=== PATIENT | male | born 1985 ===

== ENCOUNTER 2022-08-09 21:15 | Outpatient (REF) | payer MEDICAID, SELFPAY ==
--- OUTSIDE RECORDS SUMMARY | 2022-08-09 21:20 | XMS_ITS | Continuity of Care Document ---
Author Name Unknown Organization [facility] Address [address] [place] [address] Care Team Providers Care Science Teacher Name Role Phone Sobeida Nagel Primary Care Physician Encounter [email or web address] Date(s): 08/03/22 - 08/03/[address] [address] Discharge Disposition: Home or Self Care Attending Physician: Juhi Mena APRN Admitting Physician: Juhi Mena APRN Referring Physician: Juhi Mena APRN Allergies, Adverse Reactions, Alerts No Known Medication Allergies Assessment and Plan Diagnostic Tests Pending * Lyme Antibody [facility] 08/03/22 Future Scheduled Tests Laboratory* T3, Free [facility] 02/01/22 * TSH w/ Rflx to Free [facility] 02/01/22 Immunizations Given and Recorded Vaccine Date Status Refusal Reason measles/mumps/rubella virus vaccine 04/25/98 Recor ded Td(adult) unspecified formulation 04/25/98 Recorde d Medications Suboxone per patient taking 8 mg daily, 0 Refill(s) Start Date: 11/21/21 Status: Ordered Problem List Condition Confirmation Course Effective Dates Status H ealth Status Informant Anxiety Confirmed Active Attention deficit hyperactivity disorder Confirmed Active Chest pain Confirmed Active Depressive disorder Confirmed Active Dermatophytosis Confirmed Active Epididymitis Confirmed Active Fatigue Confirmed Active Inflammatory dermatosis Confirmed Active Migraine Confirmed Active Nicotine dependence Confirmed Active Panic disorder Confirmed Active Periapical abscess without sinus tract Confirmed Active Phlebitis and thrombophlebitis Confirmed Active Procedures Procedure Date Related Diagnosis Body Site Status Circumcision Completed Social History Social History Type Response Tobacco Current everyday tob acco user Tobacco Use:. smokes 10 cigarettes and 2 cigars daily then smolkes marijuana per day. Sex Male Patient Care team information Care Team Personnel Name: Sobeida Nagel Position: No Access Member Role: Primary Care Physician Address: Address: [address] [address]- [place]
[2022-08-09 21:48] LABS: TSH (W/Ref FT4) 0.66 uIU/mL (0.36-3.74)
== END 2022-08-09 21:16 | disposition home or self-care (01) ==
LOC: NCHCN 21:15
PROVIDERS: PCP Internal Medicine; Visit Provider Family Medicine
DX: R53.83 Other fatigue (principal)
CPT/HCPCS: 84443

== ENCOUNTER 2023-06-18 16:04 | Outpatient (REF) | payer MEDICAID, SELFPAY ==
--- OUTSIDE RECORDS SUMMARY | 2023-06-18 16:22 | XMS_ITS | Continuity of Care Document ---
Author Name Unknown Organization [facility] Address [address] [place] [address] Encounter [facility] Date(s): 02/14/23 - 02/14/23 [facility] [address] [place] [address] [place] Encounter Diagnosis Headache(Discharge Diagnosis) - 02/14/23 Discharge Disposition: Home or Self Care Attending Physician: Joshua Balderrama MD Admitting Physician: Joshua Balderrama MD Allergies, Adverse Reactions, Alerts No Known Medication Allergies Assessment and Plan Extracted from: Title:Clinical Document Author:Dawna Alonso te:02/14/23 Diagnosis: 1. Headache Comment: Diagnosis: Headache Comment: Functional Status 02/14/23 Family Member Travel History No recent t ravel Recent Travel History No recent travel Other exposure to Infectious Disease Non e Immunizations Given and Recorded Vaccine Date Status [...] Related Diagnosis Body Site Status Circumcision Completed Results Laboratory List Name Date CBC w/ Diff 02/14/23 Comprehensive Metabolic Panel (CMP) 02/14 SARS-CoV-2 (COVID-19) RNA (ID Now) Automated Diff 02/14/23 Most recent to oldest [Reference Range]: 1 WBC [5.0-10.0 x10^3/mcL] 6.8 x10^3/mcL (02/14/23 12:12 PM) RBC [4.6-6.0 x10^6/mcL] 5.3 x10^6/mcL (02/14/23 12:12 PM) Neutro Auto [40.0-75.0 %] 53.3 % (02/14/23 12:12 PM) Lymph Auto [20.0-50.0 %] 38.0 % (02/14/23 12:12 PM) Coos Auto [2.0-15.0 %] 6.9 % (02/14/23 12:12 PM) Basophil Auto [0.0-1.0 %] 0.6 % (02/14/23 12:12 PM) BUN [7-18 mg/dL] 10 mg/dL (02/14/23 12:12 PM) Glucose Level [74-106 mg/dL] 94 mg/dL (02/14/23 12:12 PM) Potassium Level [3.5-5.1 mmol/L] 3.8 mmo l/L (02/14/23 12:12 PM) MCV [80.0-96.0 fL] 92.1 fL (02/14/23 12:12 PM) AST [15-37 unit/L] 24 unit/L (02/14/23 12:12 PM) ALT [16-63 unit/L] 36 unit/L (02/14/23 12:12 PM) MCHC [31.0-35.0 g/dL] 34.1 g/dL (02/14/23 12:12 PM) Sodium Level [136-145 mmol/L] 138 mmol/L (02/14/23 12:12 PM) Hct [41.0-51.0 %] 49.0 % (02/14/23 12:12 PM) Calcium Level [8.5-10.1 mg/dL] 9.6 mg/dL (02/14/23 12:12 PM) Albumin Level [3.4-5.0 g/dL] 4.0 g/dL (02/14/23 12:12 PM) Protein Total [6.4-8.2 g/dL] 7.9 g/dL (02/14/23 12:12 PM) MCH [26.0-32.0 pg] 31.4 pg (02/14/23 12:12 PM) Neutro Absolute 3.7 x10^3/mcL *NA* (02/14/23 12:12 PM) Bilirubin Total [0.2-1.0 mg/dL] 0.8 mg/d L (02/14/23 12:12 PM) Hgb [14.0-18.0 g/dL] 16.7 g/dL (02/14/23 12:12 PM) Alk Phos [46-146 unit/L] 101 unit/L (02/14/23 12:12 PM) Platelets [130-450 x10^3/mcL] 225 x10^3/ mcL (02/14/23 12:12 PM) CO2 [21-32 mmol/L] 25 mmol/L (02/14/23 12:12 PM) eGFR Non-AA [>=60] 111 (02/14/23 12:12 PM) eGFR AA [>=60] 111 (02/14/23 12:12 PM) Chloride Level [98-107 mmol/L] 102 mmol/ L (02/14/23 12:12 PM) RDW-CV [11.5-14.5 %] 12.1 % (02/14/23 12:12 PM) Imm Gran Auto [0.0-0.9 %] 0.3 % (02/14/23 12:12 PM) Slide Review Not Indicated (02/14/23 12:12 PM) Creatinine Level [0.70-1.30 mg/dL] 0.90 mg/dL (02/14/23 12:12 PM) SARS-CoV-2 (COVID-19) RNA (ID Now) [Not Detected] Not Detected (02/14/23 12:12 PM) Eos, Auto [1.0-6.0 %] 0.9 % *LOW* (02/14/23 12:12 PM) Vital Signs Most recent to oldest [Reference Range]: 1 Temperature Temporal Artery [36-38 Deg C ] 36.3 Deg C (02/14/23 11:57 AM) Peripheral Pulse Rate [60-100 bpm] 67 bp m (02/14/23 11:57 AM) Respiratory Rate [12-24 br/min] 18 br/mi n (02/14/23 11:57 AM) Blood Pressure [90-140/60-90 mmHg] 152/8 5mmHg *HI* (02/14/23 11:57 AM) Weight Dosing 73.00 kg (02/14/23 12:04 PM) Weight Estimated 73.00 kg (02/14/23 11:57 AM) Height/Length Dosing 172.000 cm (02/14/23 12:04 PM) Height/Length Estimated 172.000 cm (02/14/23 11:57 AM) Social History Social History Type Response Tobacco Current everyday tob acco user Tobacco Use:. pt states he still smokes per day. 13 year(s). Sex Male Hospital Discharge Instructions Patient Education 02/14/2023 12:19:58 Migraine Headache Migraine Headache A migraine headache is an intense, throbbing pain on one side or both sides of the head. Migraine headaches may also cause other symptoms, such as nausea, vomiting, and sensitivity to light and noise. A migraine headache can last from 4 hours to 3 days. Talk with your doctor about what things may bring on (trigger) your migraine headaches. What are the causes? The exact cause of this condition is not known. However, a migraine may be caused when nerves in the brain become irritated and release chemicals that cause inflammation of blood vessels. This inflammation causes pain. This condition may be triggered or caused by: ??? Drinking alcohol. ??? Smoking. ??? Taking medicines, such as: ??? Medicine used to treat chest pain (nitroglycerin). ??? control pills. ??? Estrogen. ??? Certain blood pressure medicines. ??? Eating or drinking products that contain nitrates, glutamate, aspartame, or tyramine. Aged cheeses, chocolate, or caffeine may also be triggers. ??? Doing physical activity. Other things that may trigger a migraine headache include: ??? Menstruation. ??? . ??? Hunger. ??? Stress. ??? Lack of sleep or too much sleep. ??? Weather changes. ??? Fatigue. What increases the risk? The following factors may make you more likely to experience migraine headaches: ??? Being a certain age. This condition is more common in people who are 25???55 years old. ??? Being female. ??? Having a family history of migraine headaches. ??? Being . ??? Having a mental health condition, such as depression or anxiety. ??? Being obese. What are the signs or symptoms? The main symptom of this condition is pulsating or throbbing pain. This pain may: ??? Happen in any area of the head, such as on one side or both sides. ??? Interfere with daily activities. ??? Get worse with physical activity. ??? Get worse with exposure to bright lights or loud noises. Other symptoms may include: ??? Nausea. ??? Vomiting. ??? Dizziness. ??? General sensitivity to bright lights, loud noises, or smells. Before you get a migraine headache, you may get warning signs (an aura). An aura may include: ??? Seeing flashing lights or having blind spots. ??? Seeing bright spots, halos, or zigzag lines. ??? Having tunnel vision or blurred vision. ??? Having numbness or a tingling feeling. ??? Having trouble talking. ??? Having muscle weakness. Some people have symptoms after a migraine headache (postdromal phase), such as: ??? Feeling tired. ??? Difficulty concentrating. How is this diagnosed? A migraine headache can be diagnosed based on: ??? Your symptoms. ??? A physical exam. ??? Tests, such as: ??? CT scan or an MRI of the head. These imaging tests can help rule out other causes of headaches. ??? Taking fluid from the spine (lumbar puncture) and analyzing it (cerebrospinal fluid analysis, or CSF analysis). How is this treated? This condition may be treated with medicines that: ??? Relieve pain. ??? Relieve nausea. ??? Prevent migraine headaches. Treatment for this condition may also include: ??? Acupuncture. ??? Lifestyle changes like avoiding foods that trigger migraine headaches. ??? Biofeedback. ??? Cognitive behavioral therapy. Follow these instructions at home: Medicines ??? Take viui-pyf-fzxrgqa and prescription medicines only as told by your health care provider. ??? Ask your health care provider if the medicine prescribed to you: ??? Requires you to avoid driving or using heavy machinery. ??? Can cause constipation. You may need to take these actions to prevent or treat constipation: ??? Drink enough fluid to keep your urine pale yellow. ??? Take orva-uvk-lvaeglm or prescription medicines. ??? Eat foods that are high in fiber, such as beans, whole grains, and fresh fruits and vegetables. ??? Limit foods that are high in fat and processed sugars, such as fried or sweet foods. Lifestyle ??? Do not drink alcohol. ??? Do not use any products that contain nicotine or tobacco, such as cigarettes, e-cigarettes, andchewing tobacco. If you need help quitting, ask your health care provider. ??? Get at least 8 hours of sleep every night. ??? Find ways to manage stress, such as meditation, deep breathing, or yoga. General instructions ??? Keep a journal to find out what may trigger your migraine headaches. For example, write down: ??? What you eat and drink. ??? How much sleep you get. ??? Any change to your diet or medicines. ??? If you have a migraine headache: ??? Avoid things that make your symptoms worse, such as bright lights. ??? It may help to lie down in a dark, quiet room. ??? Do not drive or use heavy machinery. ??? Ask your health care provider what activities are safe for you while you are experiencing symptoms. ??? Keep all follow-up visits as told by your health care provider. This is important. Contact a health care provider if: ??? You develop symptoms that are different or more severe than your usual migraine headache symptoms. ??? You have more than 15 headache days in one month. Get help right away if: ??? Your migraine headache becomes severe. ??? Your migraine headache lasts longer than 72 hours. ??? You have a fever. ??? You have a stiff neck. ??? You have vision loss. ??? Your muscles feel weak or like you cannot control them. ??? You start to lose your balance often. ??? You have trouble walking. ??? You faint. ??? You have a seizure. Summary ??? A migraine headache is an intense, throbbing pain on one side or both sides of the head. Migraines may also cause other symptoms, such as nausea, vomiting, and sensitivity to light and noise. ??? This condition may be treated with medicines and lifestyle changes. You may also need to avoid certain things that trigger a migraine headache. ??? Keep a journal to find out what may trigger your migraine headaches. ??? Contact your health care provider if you have more than 15 headache days in a month or you develop symptoms that are different or more severe than your usual migraine headache symptoms. This information is not intended to replace advice given to you by your health care provider. Make sure you discuss any questions you have with your health care provider. Document Revised: 08/28/2019 Document Reviewed: 06/18/2019 [employer] Patient Education ?? 2022 [employer]. Follow Up Care 02/14/2023 11:57:19 With:Primary Care Physician Address: When:1 to 2 weeks only if needed Physician Emergency department Note * Jackie Butterfield MD: PERFORM Event Display: ED Note Physician Authored Date: [id number] RADHIKA LAMAS :1985 Age:37 years Sex:Male Visit Date:02/14/2023 Primary Care Physician: Sobeida Nagel SET UP INSPECTOR-C Basic Information Time Seen: Jackie Butterfield MD / 02/14/2023 12:53 Chief Complaint My head is pounding, I thought i was having a stroke, like my head was going to pop. PT also c/o some sinus pressure. Pt states 11 pm last night FAUSTIN started. No medications [employer]. No vision changes. 4mg zofran 1120 by EMs History Of Present Illness: 37-year-old??gentleman??with chart listed history of anxiety, ADHD, chest pain, depression, fatigue, migraine headaches, nicotine dependence,??panic disorder,??who tells me he called EMS because he had a FAUSTIN and did not have any Tylenol at home. His headache has now resolved. FAUSTIN was in the frontal area and associated with nasal stuffiness and facial pain which had started last night.?? No nausea, vomiting, constipation or diarrhea.?? No visual changes.?? No fever or neck pain??or neck stiffness. Physical Exam Vitals & Measurements T:??36.3?C ??(Temporal Artery)?? HR:??67??(Peripheral)?? RR:??18?? BP:??152/85?? SpO2:??95%?? HT:??172.000??cm?? WT:??73.00??kg??(Estimated)?? Pain Score:??4?? Pain Score:??4?? O2 Therapy:??Room air?? General: A&Ox3, Calm, no apparent distress, well developed, pleasant and cooperative ?? HEENT: Head ATNC. Eyes: LATASHA. Extraocular Mobility: intact and symmetrical. Conjunctiva: non-injected, anicteric, no discharge. Oral Cavity: moist. Neck: no masses, no crepitus. Lymph Nodes: no cervical lymphadenopathy? Respiratory: CTA bilaterally, no wheezing, no rales/crackles? CV: RRR, normal S1, normal S2, no murmurs, rubs or gallops ?? Abdomen : soft, non-tender, non-distended, no rebound or guarding, no hepatosplenomegaly ?? Extremities: no le swelling, warm and well-perfused, no cyanosis, capillary refill <2 seconds? Skin: no rash, no lesions, no bruising? Neuro: normal tone, normal strength in all 4 extremities, sensation intact?? Medical Decision Makin-year-old??gentleman??with chart listed history of anxiety, ADHD, chest pain, depression, fatigue, migraine headaches, nicotine dependence,??panic disorder,??who presented to the ED via EMS for FAUSTIN.Pt given Tylenol and Ibuprofen at triage and by the time I saw him his symptoms had all resolved and he requested d/c to go to work. Exam unremarkable Labs sent by nursing were reassuring Pt d/edelmira home Discharge instructions and return precautions discussed, all questions answered. Procedure No Qualifying Data Assessment/Plan 1.??Headache??R51.9 Ordered: Discharge Patient, 02/14/23 13:20:00 EDT, Constant Indicator ?? Patient Education Migraine Headache Follow Up With When Contact Information Primary Care Physician Within 1 to 2 weeks, only if needed Additional Instructions: Medication Reconciliation Unchanged buprenorphine-naloxone (Suboxone)per patient taking 8 mg daily. Problem List/Past Medical History Ongoing Anxiety Attention deficit hyperactivity disorder Chest pain Depressive disorder Dermatophytosis Epididymitis Fatigue Inflammatory dermatosis Migraine Nicotine dependence Panic disorder Periapical abscess without sinus tract Phlebitis and thrombophlebitis Historical No qualifying data Procedure/Surgical History ???Circumcision Medication Administration Given ibuprofen, 800 mg, Oral Tylenol, 1000 mg, Oral Allergies No Known Medication Allergies Social History Alcohol Current, 1-2 times per week Electronic Cigarette/Vaping Electronic Cigarette Use: Never. Substance Use Current, Marijuana Tobacco Current everyday tobacco user Tobacco Use:. pt states he still smokes per day. 15 year(s). Lab Results CBC and Differential?? LATEST RESULTS?? HISTORICAL RESULTS?? WBC?? 02/14/23 12:12?? 6.8?? 12/12/21?? 6.8?? RBC?? 02/14/23 12:12?? 5.3?? 12/12/21?? 4.5 ??Low?? Hgb?? 02/14/23 12:12?? 16.7?? 12/12/21?? 14.5?? Hct?? 02/14/23 12:12?? 49.0?? 12/12/21?? 41.9?? MCV?? 02/14/23 12:12?? 92.1?? 12/12/21?? 92.7?? MCH?? 02/14/23 12:12?? 31.4?? 12/12/21?? 32.1 ??High?? MCHC?? 02/14/23 12:12?? 34.1?? 12/12/21?? 34.6?? RDW-CV?? 02/14/23 12:12?? 12.1?? 12/12/21?? 12.0?? Platelets?? 02/14/23 12:12?? 225?? 12/12/21?? 268?? Neutro Auto?? 02/14/23 12:12?? 53.3?? 12/12/21?? 50.3?? Lymph Auto?? 02/14/23 12:12?? 38.0?? 12/12/21?? 41.8?? Coos Auto?? 02/14/23 12:12?? 6.9?? 12/12/21?? 6.0?? Eos, Auto?? 02/14/23 12:12?? 0.9 ??Low?? 12/12/21?? 1.2?? Basophil Auto?? 02/14/23 12:12?? 0.6?? 12/12/21?? 0.4?? Imm Gran Auto?? 02/14/23 12:12?? 0.3?? 12/12/21?? 0.3?? Neutro Absolute?? 02/14/23 12:12?? 3.7?? 12/12/21?? 3.4?? Slide Review?? 02/14/23 12:12?? Not Indicated? Routine Chemistry?? LATEST RESULTS?? HISTORICAL RESULTS?? Sodium Level?? 02/14/23 12:12?? 138?? 12/12/21?? 141?? Potassium Level?? 02/14/23 12:12?? 3.8?? 12/12/21?? 4.2?? Chloride Level?? 02/14/23 12:12?? 102?? 12/12/21?? 105?? CO2?? 02/14/23 12:12?? 25?? 12/12/21?? 27?? Alk Phos?? 02/14/23 12:12?? 101?? 12/12/21?? 89?? AST?? 02/14/23 12:12?? 24?? 12/12/21?? 23?? ALT?? 02/14/23 12:12?? 36?? 12/12/21?? 28?? BUN?? 02/14/23 12:12?? 10?? 12/12/21?? 13?? Glucose Level?? 02/14/23 12:12?? 94?? 12/12/21?? 87?? Creatinine Level?? 02/14/23 12:12?? 0.90?? 12/12/21?? 0.93?? eGFR AA?? 02/14/23 12:12?? 111?? 12/12/21?? 108?? eGFR Non-AA?? 02/14/23 12:12?? 111?? 12/12/21?? 108?? Calcium Level?? 02/14/23 12:12?? 9.6?? 12/12/21?? 9.0?? Protein Total?? 02/14/23 12:12?? 7.9?? 12/12/21?? 7.4?? Albumin Level?? 02/14/23 12:12?? 4.0?? 12/12/21?? 4.0?? Bilirubin Total?? 02/14/23 12:12?? 0.8?? 12/12/21?? 0.4? Infectious Disease?? LATEST RESULTS?? SARS-CoV-2 (COVID-19) RNA (ID Now)?? 02/14/23 12:12?? Not Detected? Electronically Signed on 02/14/23 01:23 PM Jackie Butterfield MD Emergency department Discharge instructions * Jackie Butterfield MD: PERFORM Event Display: ED Discharge Information Authored Date: [id number] RADHIKA LAMAS :1985 Age:37 years Sex:Male Visit Date:02/14/2023 Primary Care Physician: Sobeida Nagel SET UP INSPECTOR-C Discharge Instructions We would like to thank you for allowing us to assist you with your healthcare needs. The following includes patient education materials and information regarding your injury/illness. Diagnosis from Today's Visit Headache Discharge Vitals Temperature??(Temporal Artery) 97.3 ??F (36.3 ??C) Heart Rate??(Peripheral) 67 Respiratory Rate?? 18 Blood Pressure?? 152/85?? Height?? 67.72 in (172.000 cm) Weight??(Estimated) 160.96 lb (73.00 kg) Allergies No Known Medication Allergies What to Do Next Instructions from Your Care Team Please continue Tylenol as needed for pain. Follow up with your primary care doctor for reevaluation in about a week as needed. Return to the ED for any new or worsening symptoms. You Need to Schedule the Following Appointments Follow Up with??Primary Care Physician When:??Within 1 to 2 weeks, only if needed You were treated today on an emergency basis; it may be strange to contact your primary care provider to notify them of your visit today. You may have been referred to your regular doctor or a specialist, please follow up as instructed. If your condition worsens or you can't get in to see the doctor, contact the Emergency Department. Medications What When Instructions Next Dose Unchanged buprenorphine-naloxone (Suboxone) per patient taking 8 mg daily ?? Education Materials Migraine Headache A migraine headache is an intense, throbbing pain on one side or both sides of the head. Migraine headaches may also cause other symptoms, such as nausea, vomiting, and sensitivity to light and noise. A migraine headache can last from 4 hours to 3 days. Talk with your doctor about what things may bring on (trigger) your migraine headaches. What are the causes? The exact cause of this condition is not known. However, a migraine may be caused when nerves in the brain become irritated and release chemicals that cause inflammation of blood vessels. This inflammation causes pain. This condition may be triggered or caused by: ? Drinking alcohol. ? Smoking. ? Taking medicines, such as: ? Medicine used to treat chest pain (nitroglycerin). ? control pills. ? Estrogen. ? Certain blood pressure medicines. ? Eating or drinking products that contain nitrates, glutamate, aspartame, or tyramine. Aged cheeses,chocolate, or caffeine may also be triggers. ? Doing physical activity. Other things that may trigger a migraine headache include: ? Menstruation. ? . ? Hunger. ? Stress. ? Lack of sleep or too much sleep. ? Weather changes. ? Fatigue. What increases the risk? The following factors may make you more likely to experience migraine headaches: ? Being a certain age. This condition is more common in people who are 25???55 years old. ? Being female. ? Having a family history of migraine headaches. ? Being . ? Having a mental health condition, such as depression or anxiety. ? Being obese. What are the signs or symptoms? The main symptom of this condition is pulsating or throbbing pain. This pain may: ? Happen in any area of the head, such as on one side or both sides. ? Interfere with daily activities. ? Get worse with physical activity. ? Get worse with exposure to bright lights or loud noises. Other symptoms may include: ? Nausea. ? Vomiting. ? Dizziness. ? General sensitivity to bright lights, loud noises, or smells. Before you get a migraine headache, you may get warning signs (an aura). An aura may include: ? Seeing flashing lights or having blind spots. ? Seeing bright spots, halos, or zigzag lines. ? Having tunnel vision or blurred vision. ? Having numbness or a tingling feeling. ? Having trouble talking. ? Having muscle weakness. Some people have symptoms after a migraine headache (postdromal phase), such as: ? Feeling tired. ? Difficulty concentrating. How is this diagnosed? A migraine headache can be diagnosed based on: ? Your symptoms. ? A physical exam. ? Tests, such as: ? CT scan or an MRI of the head. These imaging tests can help rule out other causes of headaches. ? Taking fluid from the spine (lumbar puncture) and analyzing it (cerebrospinal fluid analysis, or CSF analysis). How is this treated? This condition may be treated with medicines that: ? Relieve pain. ? Relieve nausea. ? Prevent migraine headaches. Treatment for this condition may also include: ? Acupuncture. ? Lifestyle changes like avoiding foods that trigger migraine headaches. ? Biofeedback. ? Cognitive behavioral therapy. Follow these instructions at home: Medicines ? Take mcdl-noc-mebkyej and prescription medicines only as told by your health care provider. ? Ask your health care provider if the medicine prescribed to you: ? Requires you to avoid driving or using heavy machinery. ? Can cause constipation. You may need to take these actions to prevent or treat constipation: ? Drink enough fluid to keep your urine pale yellow. ? Take jxvy-cxh-slebpri or prescription medicines. ? Eat foods that are high in fiber, such as beans, whole grains, and fresh fruits and vegetables. ? Limit foods that are high in fat and processed sugars, such as fried or sweet foods. Lifestyle ? Do not drink alcohol. ? Do not use any products that contain nicotine or tobacco, such as cigarettes, e- cigarettes, and chewing tobacco. If you need help quitting, ask your health care provider. ? Get at least 8 hours of sleep every night. ? Find ways to manage stress, such as meditation, deep breathing, or yoga. General instructions ? Keep a journal to find out what may trigger your migraine headaches. For example, write down: ? What you eat and drink. ? How much sleep you get. ? Any change to your diet or medicines. ? If you have a migraine headache: ? Avoid things that make your symptoms worse, such as bright lights. ? It may help to lie down in a dark, quiet room. ? Do not drive or use heavy machinery. ? Ask your health care provider what activities are safe for you while you are experiencing symptoms. ? Keep all follow-up visits as told by your health care provider. This is important. Contact a health care provider if: ? You develop symptoms that are different or more severe than your usual migraine headache symptoms. ? You have more than 15 headache days in one month. Get help right away if: ? Your migraine headache becomes severe. ? Your migraine headache lasts longer than 72 hours. ? You have a fever. ? You have a stiff neck. ? You have vision loss. ? Your muscles feel weak or like you cannot control them. ? You start to lose your balance often. ? You have trouble walking. ? You faint. ? You have a seizure. Summary ? A migraine headache is an intense, throbbing pain on one side or both sides of the head. Migraines may also cause other symptoms, such as nausea, vomiting, and sensitivity to light and noise. ? This condition may be treated with medicines and lifestyle changes. You may also need to avoid certain things that trigger a migraine headache. ? Keep a journal to find out what may trigger your migraine headaches. ? Contact your health care provider if you have more than 15 headache days in a month or you develop symptoms that are different or more severe than your usual migraine headache symptoms. This information is not intended to replace advice given to you by your health care provider. Make sure you discuss any questions you have with your health care provider. Document Revised: 08/28/2019 Document Reviewed: 06/18/2019 [employer] Patient Education ?? 2022 [employer] Tests Performed Medications and Immunizations Administered Given ibuprofen, 800 mg, Oral Tylenol, 1000 mg, Oral Lab Test Name Test Result Date/Time WBC 6.8 x10^3/mcL 02/14/2023 12:12 EDT RBC 5.3 x10^6/mcL 02/14/2023 12:12 EDT Hgb 16.7 g/dL 02/14/2023 12:12 EDT Hct 49.0 % 02/14/2023 12:12 EDT MCV 92.1 fL 02/14/2023 12:12 EDT MCH 31.4 pg 02/14/2023 12:12 EDT MCHC 34.1 g/dL 02/14/2023 12:12 EDT RDW-CV 12.1 % 02/14/2023 12:12 EDT Platelets 225 x10^3/mcL 02/14/2023 12:12 EDT Neutro Auto 53.3 % 02/14/2023 12:12 EDT Lymph Auto 38.0 % 02/14/2023 12:12 EDT [place] Auto 6.9 % 02/14/2023 12:12 EDT Eos, Auto 0.9 % 02/14/2023 12:12 EDT Basophil Auto 0.6 % 02/14/2023 12:12 EDT Imm Gran Auto 0.3 % 02/14/2023 12:12 EDT Neutro Absolute 3.7 x10^3/mcL 02/14/2023 12:12 EDT Slide Review Not Indicated 02/14/2023 12:12 EDT Sodium Level 138 mmol/L 02/14/2023 12:12 EDT Potassium Level 3.8 mmol/L 02/14/2023 12:12 EDT Chloride Level 102 mmol/L 02/14/2023 12:12 EDT CO2 25 mmol/L 02/14/2023 12:12 EDT Alk Phos 101 unit/L 02/14/2023 12:12 EDT AST 24 unit/L 02/14/2023 12:12 EDT ALT 36 unit/L 02/14/2023 12:12 EDT BUN 10 mg/dL 02/14/2023 12:12 EDT Glucose Level 94 mg/dL 02/14/2023 12:12 EDT Creatinine Level 0.90 mg/dL 02/14/2023 12:12 EDT eGFR AA 111 02/14/2023 12:12 EDT eGFR Non-AA 111 02/14/2023 12:12 EDT Calcium Level 9.6 mg/dL 02/14/2023 12:12 EDT Protein Total 7.9 g/dL 02/14/2023 12:12 EDT Albumin Level 4.0 g/dL 02/14/2023 12:12 EDT Bilirubin Total 0.8 mg/dL 02/14/2023 12:12 EDT SARS-CoV-2 (COVID-19) RNA (ID Now) Not Detected 02/14/2023 12:12 EDT Patient/Doper Signature Patient Name:ETELVINA LAMASRIAH Karma I have received this information and my questions have been answered. Patient/Doper Name: Patient/Doper Signature: Relationship to Patient: Witness Name/Signature: Date: Electronically Signed on: 02/14/2023 13:21 EDTSigned by:B Discharge summary * Dawna Alonso: PERFORM Event Display: Discharge Note Authored Date: * Dawna Alonso: PERFORM Event Display: Discharge Note Authored Date: Diagnosis: 1. Headache Comment: Diagnosis: Headache Comment: Electronically Signed on 02/14/23 02:28 PM Dawna Alonso Patient Care team information Care Team Personnel Name: Jackie Butterfield MD Position: Physician Member Role: ED Physician Address: Address: [address] [place] [address] Name: Junie Mancera RN Position: Nurse Member Role: ED Nurse Care Team Related Persons Name: RASHAD, RASHAD
[2023-06-18 17:01] LABS: Source Nasal/Nares
[2023-06-18 18:19] LABS: COVID-19 PCR Negative (Negative)
== END 2023-06-18 16:05 | disposition home or self-care (01) ==
LOC: NCHCN 16:04
PROVIDERS: PCP Internal Medicine; Visit Provider Physician Assistant
DX: J06.9 Acute upper respiratory infection, unspecified (principal); Z20.822 Contact with and (suspected) exposure to COVID-19
CPT/HCPCS: 87635

== ENCOUNTER 2023-11-06 15:28 | Outpatient (REF) | payer MEDICAID, SELFPAY ==
[2023-11-06 21:21] LABS: ALT 28 U/L (16-63); AST 27 U/L (15-37); Alkaline Phosphatase 87 U/L (46-116); Anion Gap 7.1 mmol/L (3-11); BUN 11 mg/dL (7-18); Bilirubin, Total 0.36 mg/dL (0.2-1.0); CO2 26.9 mmol/L (21.0-32.0); CREATININE 0.9 mg/dL (0.70-1.30); Calcium 9.5 mg/dL (8.5-10.1); Chloride 106 mmol/L (98-107); Estimated GFR 110.73 (mL/min/1.73m2); Glucose 104 mg/dL (74-106); Potassium 4.8 mmol/L (3.5-5.1); Sodium 140 mmol/L (136-145); Total Protein 7.8 g/dL (6.4-8.2)
== END 2023-11-06 15:29 | disposition home or self-care (01) ==
LOC: NCHCN 15:28
PROVIDERS: PCP Internal Medicine; Visit Provider Family Medicine
DX: B35.1 Tinea unguium (principal)
CPT/HCPCS: 80053